=== PATIENT | female | born 1965 | race Caucasian/White ===

== ENCOUNTER 2018-07-14 00:54 | Emergency (ER) | payer OTHER ==
[~2018-07-14] VITALS: Ht 167.6 cm; Wt 81.6 kg
[2018-07-14 01:31] VITALS: BP 143/91
== END 2018-07-14 03:22 | disposition home or self-care (01) ==
LOC: ER 01:05
DX: R00.1 Bradycardia, unspecified (principal); R42 Dizziness and giddiness; F41.9 Anxiety disorder, unspecified; G43.909 Migraine, unspecified, not intractable, without status migrainosus; Z98.890 Other specified postprocedural states